=== PATIENT | female | born 1970 | race African-American/Black ===

== ENCOUNTER 2017-04-15 23:31 | Emergency (ER) | payer OTHER ==
[2017-04-15] MEDS ORDERED: Ondansetron ODT 4 MG TAB ONE (23:46)
[2017-04-15] MEDS ORDERED: Benzonatate 100 MG CAP ONE (23:46)
[2017-04-15] MEDS ORDERED: Lorazepam 0.5 MG TAB ONE (23:46)
== END 2017-04-15 23:52 | disposition home or self-care (01) ==
LOC: BURERS 23:31
DX: J06.9 Acute upper respiratory infection, unspecified (principal); F41.9 Anxiety disorder, unspecified; Z79.891 Long term (current) use of opiate analgesic; Z79.899 Other long term (current) drug therapy
CPT/HCPCS: 99283; Q0162

== ENCOUNTER 2019-11-10 15:18 | Emergency (ER) | payer OTHER ==
[2019-11-10 15:53] LABS: Bilirubin Small (Negative); Blood, Urine Large (Negative); Glucose, Urine (Dipstick) Negative (Negative); Ketone, Urine Trace mg/dL (Negative); Leukocyte Small (Negative); Nitrite Negative (Negative); Protein, Urine (Dipstick) > or equal to 300 mg/dL (Neg-Trace)
[2019-11-10 16:01] LABS: Clarity Cloudy (Clear)
[2019-11-10 16:02] LABS: Specific Gravity, Urine 1.033 (1.002-1.036)
[2019-11-10 16:03] LABS: Bacteria/HPF 1+ HPF (None Seen); Squamous Epithelial 0-3 HPF (0-3); WBC/HPF Greater Than 50 HPF (0-3)
[2019-11-10] MEDS ORDERED: Lidocaine 2% PF 5 ML VIAL ONE (21:44)
== END 2019-11-10 15:50 | disposition left against medical advice (07) ==
LOC: BURERS 15:18
DX: Z53.21 Procedure and treatment not carried out due to patient leaving prior to being seen by health care provider (principal)
CPT/HCPCS: 81003; 81015

== ENCOUNTER 2021-10-08 12:31 | Emergency (ER) | payer OTHER | END 2021-10-08 13:07 | disposition home or self-care (01) | LOC: BURERS 12:31 | DX: S81.852A Open bite, left lower leg, initial encounter (principal); W54.0XXA Bitten by dog, initial encounter | CPT/HCPCS: 99283 ==